=== PATIENT | male | born 2000 | race Caucasian/White ===

== ENCOUNTER 2019-06-30 12:41 | Emergency (ER) | payer BC, SELFPAY ==
[2019-06-30 12:57] VITALS: BP 130/78; PULSE 102; RESP 18; TEMP 37.2; O2SAT 98
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
== END 2019-06-30 13:22 | disposition home or self-care (01) ==
PROVIDERS: Emergency Provider Nurse Practitioner
DX: S13.4XXA Sprain of ligaments of cervical spine, initial encounter (principal); V89.2XXA Person injured in unspecified motor-vehicle accident, traffic, initial encounter; R51 Headache; F41.9 Anxiety disorder, unspecified; F90.9 Attention-deficit hyperactivity disorder, unspecified type
CPT/HCPCS: 99213; G0463

== ENCOUNTER 2020-11-01 17:38 | Emergency (ER) | payer BC, SELFPAY ==
[2020-11-01 17:45] VITALS: BP 147/89; PULSE 86; RESP 16; TEMP 36.6; O2SAT 98
--- NOTE | 2020-11-01 17:53 | ED.GENADULT ---
HPI - General Adult General Chief complaint: Neck Pain/Injury Stated complaint: pain at base of neck Source: patient Mode of arrival: ambulatory Limitations: no limitations History of Present Illness HPI narrative: Patient is a 20-year-old male who presents to the [facility] via POV for evaluation of neck pain (pointing to occipital area of head) is been present for approximately 1 week. Patient reports the pain is intermittent and throbbing in nature. He reports intermittent pains that shoot up occipital area as well. He states he noticed the symptom upon awakening. Nothing improves symptoms. Patient reports pain worsens with activity such as working out, walking, jogging, or masturbating. No relief with Motrin and hot showers. History of anxiety, ADHD, depression. Patient reports he discontinued all psychotropics a few months ago . He denies withdrawal symptoms, stating, I stopped them because I feel like I did not need them. I feel fine now . Related Data Allergies Allergy/AdvReac Type Severity Reaction Status Date / Time Penicillins Allergy Mild RASH Verified 11/01/20 17:43 Cat [place]ander Allergy Mild Sneezing Uncoded 11/01/20 17:43 [place] Allergy Mild Swelling Uncoded 11/01/20 17:43 of the Eye Review of Systems Review of Systems: Narrative: CONSTITUTIONAL: Denies fever, chills, or sweats. EYES: Denies visual changes, redness, or discharge. ENT: Denies rhinorrhea, congestion, sore throat, or otalgia. CARDIOVASCULAR: Denies chest pain, palpitations, or edema. RESPIRATORY: Denies cough or dyspnea. GASTROINTESTINAL: Denies abdominal pain, nausea, vomiting, or diarrhea. GENITOURINARY: Denies dysuria or hematuria. SKIN: Denies rash or itching. MUSCULOSKELETAL: Denies back pain, joint pain, or myalgia. NEUROLOGIC: Denies LOC dizziness, migraines, tingling, incontinence, seizures, muscle cramps, memory problems, numbness, or weakness. PSYCHIATRIC: Denies anxiety or depression. [facility] Social History Social History Gender identity (if verbalized by the patient): Male Comments I have reviewed and agree with the patient's past medical, surgical, social, and family hx as documented by the RN. There is no relevant family history pertinent to the presenting complaint. Exam Narrative: Exam Narrative: GENERAL: Well-appearing, well-nourished, and in no acute distress. HEAD: Normocephalic, atraumatic. No sinus tenderness or facial swelling appreciated. No evidence of ear bleeding or drainage from ears. No evidence of foreign bodies. No signs of basilar skull fracture: no hemotympanum, linn's sign, or raccoon's eyes. EYES: PERRLA and EOMI. No evidence of erythema, swelling, or drainage. ENT: Bilateral external ears and ear canals normal. Bilateral TMs are normal. No TM perforation. Nares clear, no septal hematoma or epistaxis. Bilateral turbinates without erythema/ swelling. Mucous membranes moist and pink. Uvula is midline without erythema and swelling. No evidence of petechial rash, cobblestoning, lesions, ulcers, erythema, swelling, exudates, peritonsillar abscess, tenting, or drooling. Breath odor and voice normal. NECK: Supple. No injury or pain appreciated. No lymphadenopathy or nuchal rigidity appreciated. CHEST: Bilateral lung zavala are clear to auscultation. No respiratory distress. No evidence of cough or pleuritic cp upon examination. No evidence of deformity, flail chest, hematomas, contusions, lacerations. HEART: Regular rate and rhythm. No murmur, gallop, or rub heard. ABDOMEN: Soft, nontender, nondistended, normal active bowel sounds in all quadrants. No guarding. No rebound tenderness. No pulsatile or palpable abdominal mass(es). No CVAT. No evidence of seat belt sign. BACK: Full ROM. No evidence of deformity, spasm, mass, spinal tenderness, or swelling. Bilateral SLR tests negative. EXTREMITIES: Normal range of motion. No e
== END 2020-11-01 18:37 | disposition home or self-care (01) ==
PROVIDERS: Emergency Provider Nurse Practitioner Family; PCP Physician Assistant
DX: S16.1XXA Strain of muscle, fascia and tendon at neck level, initial encounter (principal); X58.XXXA Exposure to other specified factors, initial encounter; G44.209 Tension-type headache, unspecified, not intractable
CPT/HCPCS: 99213; G0463

== ENCOUNTER 2022-01-06 16:13 | Emergency (ER) | payer BC, SELFPAY ==
[2022-01-06 16:23] VITALS: BP 143/87; PULSE 81; RESP 20; TEMP 36.7; O2SAT 98
--- NOTE | 2022-01-06 16:27 | ED.URI ---
HPI - URI/Sore Throat General Chief Complaint: Upper Respiratory Infection Stated Complaint: Headache,Shortness of Breath,Body Aches Time Seen by Provider: 01/06/22 16:27 Source: patient and RN notes reviewed Mode of arrival: ambulatory Limitations: no limitations History of Present Illness HPI Narrative: 21-year-old male presents to the [facility] with complaints of headache, intermittent shortness of breath, fatigue and body aches for 3 days. Denies fevers. Reports his roommate had the same symptoms for 1 day longer than he has. Had tried yejj-qkt-uzhunzs products 1 time. Requesting a work note Onset (ago): day(s) (3) Related Data Home Medications Medication Instructions Recorded Confirmed No Home Medications 01/06/22 01/06/22 Allergies Allergy/AdvReac Type Severity Reaction Status Date / Time Penicillins Allergy Mild RASH Verified 01/06/22 16:32 Cat [place]ander Allergy Mild Sneezing Uncoded 01/06/22 16:32 [place] Allergy Mild Swelling Uncoded 01/06/22 16:32 of the Eye Review of Systems Review of Systems: All systems reviewed & are unremarkable except as noted in HPI and below Constitutional: Constitutional: Reports as per HPI, Reports chills, Reports fatigue and Denies fever(s) Eyes: Eyes: Reports no additional eye complaints ENT: Reports system reviewed and no additional complaints, except as documented Cardiovascular: Cardiovascular: Reports no additional cardiovascular complaints Respiratory: Respiratory: Reports as per HPI Gastrointestinal: Gastrointestinal: Reports no additional gastrointestinal complaints Musculoskeletal: Musculoskeletal: Reports no additional musculoskeletal complaints Integumentary/Breasts: Skin/Breast: Reports system reviewed and no additional complaints, except as docu Neurologic: Reports as per HPI and Reports headache(s) Psychiatric: Psychiatric: Reports no additional psychiatric complaints Allergic/Immunologic: Allergic/Immunologic: Reports no additional allergic/immunologic complaints PMFSH Social History Social History Gender identity (if verbalized by the patient): Male Comments At the time of my signature, I reviewed and agree with the nursing past medical, surgical, social, and family history. There is no relevant family history pertinent to the patient complaint. Exam Const: General: healthy appearing, no acute distress and alert Nutritional Appearance: well nourished and obese Orientation/consciousness: patient oriented x3 Limitations: no limitations HENMT: Head: normal to inspection Ears: external ears normal, TM's normal bilaterally and EAC's normal General nose exam: Normal external nose present and Normal nares present Face and sinus: normal facial exam Mouth: Yes Normal oral and palatal mucosa present Throat: posterior oropharynx normal and uvula midline Eyes: General: appearance normal, both eyes and all related structures Conjunctivae: conjunctivae normal Pupils: Equal, round and reactive pupils present EOM: EOMs intact bilaterally Direct Ophthalmoscopy: no photophobia Neck: Neck: normal visual inspection, no lymphadenopathy and no meningeal signs Chest: Chest palpation & inspection: normal inspection of the chest Resp: Effort & Inspection: normal respiratory effort and no use of accessory muscles Auscultation: clear to auscultation bilaterally, no crackles, no rales, no rhonchi and no wheezes Cardio: Rate: regular rate Rhythm: regular rhythm Back/Spine/Pelvis: Cervical Spine: normal cervical lordosis Thoracic/Lumbar Spine: thoracic and lumbar spine normal to inspection Skin: General skin exam: normal color Rashes: no rashes Wounds: no wounds Neuro: General: patient oriented x3, moves all extremities, no meningeal signs and no focal motor deficits Cranial nerves: Yes Equal, round and reactive pupils present Speech: normal speech Gait exam (Neuro): Normal gait present Extrem:
[2022-01-06 19:43] LABS: SARS-CoV-2 RNA PCR Negative
== END 2022-01-06 16:50 | disposition home or self-care (01) ==
PROVIDERS: Emergency Provider Nurse Practitioner
DX: J06.9 Acute upper respiratory infection, unspecified (principal); Z20.822 Contact with and (suspected) exposure to COVID-19
CPT/HCPCS: 99213; C9803; G0463; U0003; U0005

== ENCOUNTER 2022-04-05 17:09 | Emergency (ER) | payer BC, SELFPAY ==
[2022-04-05 17:18] VITALS: BP 148/87; PULSE 115; RESP 20; TEMP 36.7; O2SAT 99
--- NOTE | 2022-04-05 17:46 | ED.URI ---
HPI - URI/Sore Throat General Chief Complaint: Upper Respiratory Infection Stated Complaint: Cough,Body Aches,Fatigue,Congestion Time Seen by Provider: 04/05/22 17:39 Source: patient Mode of arrival: ambulatory Limitations: no limitations History of Present Illness HPI Narrative: Patient presents today complaining of a 2-3 day history of cough, body aches, congestion, fatigue, nausea. Denies fever or shortness of breath. He has tried no [id number] medication for his symptoms prior to arrival. States his roommate is sick with similar symptoms. Related Data Home Medications Medication Instructions Recorded Confirmed No Home Medications 01/06/22 04/05/22 Allergies Allergy/AdvReac Type Severity Reaction Status Date / Time Penicillins Allergy Mild RASH Verified 04/05/22 17:18 Cat [place]ander Allergy Mild Sneezing Uncoded 04/05/22 17:18 [place] Allergy Mild Swelling Uncoded 04/05/22 17:18 of the Eye Review of Systems Review of Systems: CONSTITUTIONAL: Denies fever, chills, or sweats.+ body aches, fatigue EYES: Denies visual changes, redness, or discharge. ENT: Denies rhinorrhea, sore throat, or otalgia.+ congestion CARDIOVASCULAR: Denies chest pain, palpitations, or edema. RESPIRATORY: Denies dyspnea.+ cough GASTROINTESTINAL: Denies abdominal pain, vomiting, or diarrhea.+ nausea GENITOURINARY: Denies dysuria or hematuria. SKIN: Denies rash, itching, or wounds. MUSCULOSKELETAL: Denies back pain, joint pain, or myalgia. NEUROLOGIC: Denies headache, numbness, tingling, or weakness. PSYCH: Denies depression or anxiety. PMFSH Social History Social History Gender identity (if verbalized by the patient): Male Comments At time of signature, I have reviewed and agree with nursing past medical, surgical, social and family history unless otherwise noted. Please see nursing chart for further information. There is no relevant family history pertinent to the presenting complaint Exam Narrative: GENERAL: Mildly ill-appearing, well-nourished, and in no acute distress. HEAD: Normocephalic, atraumatic. EYES: EOMI. No redness or drainage. Conjunctivae normal. ENT: Mucous membranes pink and moist. Nares congested. No rhinorrhea. TMs normal bilaterally. Throat normal. Uvula midline. NECK: Normal AROM. Supple. No lymphadenopathy. CHEST: No respiratory distress. Clear to auscultation. Tight cough noted. HEART: Regular rhythm. Tachycardia. No murmur appreciated. Normal peripheral pulses. EXTREMITIES: Normal range of motion. SKIN: Warm, dry, no rash. Capillary refill normal. Normal skin turgor. NEURO: No focal deficits. Alert and oriented x3. Gait steady. PSYCH: Normal affect. No signs of depression or anxiety. Course Course Level of Care: Express Care Visit Vital Signs Vital signs: Vital Signs Temperature 98.1 F 04/05/22 17:18 Pulse Rate 115 H 04/05/22 17:18 Respiratory Rate 20 04/05/22 17:18 Blood Pressure 148/87 H 04/05/22 17:18 Pulse Oximetry 99 04/05/22 17:18 Oxygen Delivery Room Air 04/05/22 17:18 Temperature 98.1 F 04/05/22 17:18 Pulse Rate 115 H 04/05/22 17:18 Respiratory Rate 20 04/05/22 17:18 Blood Pressure 148/87 H 04/05/22 17:18 Pulse Oximetry 99 04/05/22 17:18 Oxygen Delivery Room Air 04/05/22 17:18 Reviewed. Pt has been instructed to follow up with his PCP regarding his elevated blood pressure today. MDM - URI/Sore Throat Differential Diagnosis Differential diagnosis: Likely upper respiratory infection, viral infection and bronchitis Critical Care Time Critical Care Time Critical Care Time: No Discharge Plan Discharge Clinical Impression: Upper respiratory infection Qualifiers: URI type: unspecified URI Qualified Code(s): J06.9 - Acute upper respiratory infection, unspecified Patient Disposition: Home, Self-Care Condition: Stable Instructions: Upper Respiratory In
== END 2022-04-05 17:51 | disposition home or self-care (01) ==
PROVIDERS: Emergency Provider Nurse Practitioner; PCP Physician Assistant
DX: J06.9 Acute upper respiratory infection, unspecified (principal)
CPT/HCPCS: 99211; G0463

== ENCOUNTER 2022-10-24 16:14 | Emergency (ER) | payer BC, SELFPAY ==
--- NOTE | 2022-10-24 16:25 | ED.SKABFB ---
HPI - Skin/Abscess/Foreign Bdy General Chief complaint: Skin/Abscess/Foreign Body Stated complaint: lt arm irritation Time Seen by Provider: 10/24/22 16:25 Source: patient Mode of arrival: ambulatory Limitations: no limitations History of Present Illness HPI narrative: Patient is a 22-year-old male who presents with redness, swelling and tenderness to the left forearm. Patient states it started as what looked like a bite 3 days ago and has since grown into this red area. Patient denies any fever, chills, nausea, vomiting, diarrhea. Denies any numbness or tingling to hand. Related Data Allergies Allergy/AdvReac Type Severity Reaction Status Date / Time Penicillins Allergy Mild RASH Verified 10/24/22 16:28 Cat [place]ander Allergy Mild Sneezing Uncoded 10/24/22 16:28 [place] Allergy Mild Swelling Uncoded 10/24/22 16:28 of the Eye Review of Systems Review of Systems: All systems reviewed & are unremarkable except as noted in HPI and below Constitutional: Constitutional: Denies body ache(s), Denies chills, Denies fatigue, Denies fever(s), Denies headache(s), Denies malaise and Denies weakness Eyes: Eyes: Denies blurry vision, Denies irritation and Denies loss of vision ENT: Denies otalgia, Denies headache(s), Denies nasal discharge, Denies sinus pain and Denies sore throat Cardiovascular: Cardiovascular: Denies chest pain, Denies irregular heart rhythm and Denies dyspnea Respiratory: Respiratory: Denies dyspnea Gastrointestinal: Gastrointestinal: Denies abdominal pain, Denies melena, Denies hematochezia, Denies diarrhea, Denies nausea and Denies vomiting Musculoskeletal: Musculoskeletal: Denies back pain, Denies myalgias and Denies arthralgias Integumentary/Breasts: Skin/Breast: Reports change in pigmentation, Denies pruritus, Denies rash, Reports skin pain and Reports skin swelling Neurologic: Denies headache(s), Denies loss of vision and Denies weakness Psychiatric: Psychiatric: Reports no additional psychiatric complaints Endocrine: Endocrine: Denies fatigue PMFSH Social History Social History Gender identity (if verbalized by the patient): Male Comments At time of signature, agree with nursing past medical, surgical, social and family history. There is no relevant family history pertinent to the presenting complaint. Exam Const: General: cooperative, healthy appearing, comfortable, no acute distress and well nourished Nutritional Appearance: well nourished Orientation/consciousness: patient oriented x3 Limitations: no limitations HENMT: Head: normal to inspection, normocephalic and atraumatic Ears: hearing grossly normal bilaterally and external ears normal Face/Nose/Sinus: Normal external nose present, normal facial exam and face symmetric Face and sinus: normal facial exam and face symmetric Mouth: Yes lip normal Eyes: General: appearance normal, both eyes and all related structures Alignment and Position: alignment normal and position normal Periorbital: periorbital findings normal Eyelids: eyelids normal Pupils: Equal, round and reactive pupils present EOM: EOMs intact bilaterally Neck: Neck: normal visual inspection, full ROM and supple Chest: Chest palpation & inspection: normal inspection of the chest Resp: Effort & Inspection: normal respiratory effort and able to speak in complete sentences Auscultation: clear to auscultation bilaterally Cardio: Rate: regular rate Rhythm: regular rhythm Heart sounds: S1 normal heart sound present and S2 normal heart sound present GI: Inspection: normal to inspection Skin: General skin exam: normal color and no rashes or lesions noted Lesions: lesion noted left forearm size (6x6), borders well-defined, color red, consistency soft; not fluctuant, surface warm and with an erythematous base and tender Full body images: 1. 6x6 erythemic area that is tender on palpation and warm to touch. No obv
[2022-10-24 16:27] VITALS: BP 133/81; PULSE 90; RESP 18; TEMP 36.6; O2SAT 98
== END 2022-10-24 16:38 | disposition home or self-care (01) ==
PROVIDERS: Emergency Provider Nurse Practitioner Family; PCP Physician Assistant
DX: L03.116 Cellulitis of left lower limb (principal)
CPT/HCPCS: 99213; G0463

== ENCOUNTER 2024-01-28 12:05 | Emergency (ER) | payer BC, SELFPAY ==
[2024-01-28 12:17] VITALS: BP 144/88; PULSE 68; RESP 15; TEMP 36.3; O2SAT 100
--- NOTE | 2024-01-28 12:24 | ED.ABDPAIN ---
HPI - Abdominal Pain General Chief Complaint: Abdominal Pain Stated Complaint: sharp pain in abdomen and nausea Time Seen by Provider: 01/28/24 12:25 Source: patient, RN notes reviewed and old records reviewed Mode of arrival: ambulatory Limitations: no limitations History of Present Illness HPI narrative: 23-year-old male presents to the [facility] with complaints of sharp pain to the right lower quadrant. Symptoms started on Wednesday. Patient reports pain got a little better Wednesday but started vomiting. Woke up this morning with significant right lower quadrant pain, rebound tenderness as well as nausea without vomiting today. Denies fevers. Denies any abdominal surgeries. Onset (ago): day(s) (2) Related Data Home Medications Medication Instructions Recorded Confirmed atomoxetine 40 mg capsule 40 mg PO DIRECTED 01/28/24 01/28/24 Allergies Allergy/AdvReac Type Severity Reaction Status Date / Time Penicillins Allergy Mild RASH Verified 01/28/24 12:30 [place] Allergy Mild Sneezing Uncoded 01/28/24 12:30 [place] Allergy Mild Swelling Uncoded 01/28/24 12:30 of the Eye Review of Systems Review of Systems: All systems reviewed & are unremarkable except as noted in HPI and below Constitutional: Constitutional: Reports no additional constitutional complaints Eyes: Eyes: Reports no additional eye complaints ENT: Reports system reviewed and no additional complaints, except as documented Cardiovascular: Cardiovascular: Reports no additional cardiovascular complaints, Denies chest pain and Denies dyspnea Respiratory: Respiratory: Reports no additional respiratory complaints, Denies chest congestion, Denies cough and Denies dyspnea Gastrointestinal: Gastrointestinal: Reports as per HPI, Reports abdominal pain, Reports nausea and Reports vomiting Musculoskeletal: Musculoskeletal: Reports no additional musculoskeletal complaints Integumentary/Breasts: Skin/Breast: Reports system reviewed and no additional complaints, except as docu Neurologic: Reports system reviewed and no additional complaints, except as documented Psychiatric: Psychiatric: Reports no additional psychiatric complaints Allergic/Immunologic: Allergic/Immunologic: Reports no additional allergic/immunologic complaints [facility] Surgical History Surgical History (Updated 01/28/24 @ 12:38 by Maryanne Patterson APRN) History of hernia surgery As a baby Social History Social History Gender identity (if verbalized by the patient): Male Comments At the time of my signature, I reviewed and agree with the nursing past medical, surgical, social, and family history. There is no relevant family history pertinent to the patient complaint. Exam Const: General: cooperative, healthy appearing, comfortable, no acute distress, well developed, alert and well nourished Nutritional Appearance: well nourished and obese Orientation/consciousness: patient oriented x3 Limitations: no limitations HENMT: Head: normal to inspection Ears: hearing grossly normal bilaterally and external ears normal Face/Nose/Sinus: Normal external nose present, Normal nares present, Normal nasal mucous membranes and turbinates present, normal facial exam and face symmetric Face and sinus: normal facial exam and face symmetric Eyes: General: appearance normal, both eyes and all related structures Alignment and Position: alignment normal Periorbital: periorbital findings normal Neck: Neck: normal visual inspection, full ROM, no lymphadenopathy and no meningeal signs Chest: Chest palpation & inspection: normal inspection of the chest Resp: Effort & Inspection: normal respiratory effort and able to speak in complete sentences Cardio: Rate: regular rate GI: GI Palp: Yes abdominal tenderness, Yes Soft to palpation and Yes Tenderness to palpation present (GI) (RLQ) Auscultation: normal bowel sounds Skin: General skin
== END 2024-01-28 12:36 | disposition short-term general hospital (02) ==
PROVIDERS: Emergency Provider Nurse Practitioner
DX: R10.31 Right lower quadrant pain (principal)
CPT/HCPCS: 99212; G0463

== ENCOUNTER 2024-08-21 15:52 | Emergency (ER) | payer BC, SELFPAY ==
[2024-08-21 16:02] VITALS: BP 136/88; PULSE 121; RESP 18; TEMP 36.9; O2SAT 100
--- NOTE | 2024-08-21 16:06 | ED_ITS ---
HPI - URI/Sore Throat General Chief Complaint: Upper Respiratory Infection Stated Complaint: congestion / headache Time Seen by Provider: 08/21/24 16:06 Source: patient Mode of arrival: ambulatory Limitations: no limitations History of Present Illness HPI Narrative: Ryne is a 24-year-old male patient presenting to the clinic today with complaints of nonproductive cough, headache, nasal congestion, and sore throat X1 day. He denies any known fevers, chills, body aches. Denies any chest pain but does have some slight shortness of breath at times Related Data Home Medications ?Medication ?Instructions ?Recorded ?Confirmed ?Last Taken ?Type atomoxetine 40 mg capsule 40 mg PO DIRECTED 01/28/24 01/28/24 Unknown History Allergies Allergy/AdvReac Type Severity Reaction Status Date / Time Penicillins Allergy Mild RASH Verified 01/28/24 12:30 Cat [place]ander Allergy Mild Sneezing Uncoded 01/28/24 12:30 [place] Allergy Mild Swelling Uncoded 01/28/24 12:30 of the Eye Review of Systems Review of Systems: Pertinent positives per HPI. Patient denies any fever, chills, rash, visual changes, dizziness, chest pain, palpitations, nausea, vomiting, diarrhea, constipation, abdominal pain, or any urinary issues. [facility] Surgical History Surgical History History of hernia surgery As a baby Social History Social History Gender identity (if verbalized by the patient): Male Comments At the time of my signature, I reviewed and agree with the nursing past medical, surgical, social, and family history. There is no relevant family history pertinent to the patient complaint. Exam Narrative: General: Well-developed, obese, in no apparent distress Head: Normocephalic, atraumatic Eyes: Pupils equally round and reactive to light bilaterally, EOM intact, sclera and conjunctive clear, no discharge, lids normal Ears: TMs intact and congestion, ear canals clear, no drainage, grossly hearing normal. Nose: Nares patent, clear nasal discharge, no inflammation, no sinus tenderness. Mouth: Oral pharynx red without lesions or masses, good dentition, MMM. postnasal drip Neck: Supple, trachea midline, no enlargement of anterior or posterior cervical nodes, no thyroid masses or goiter palpable. Cardio: Regular rate and rhythm, s1 and s2 normal, no murmur appreciated. Resp: Lung sounds tight/diminished, no rhonchi, rales, wheezing or rubs Course Course Emergency Course: Portions of this record may have been created with voice recognition software. Level of Care: Express Care Visit Vital Signs Vital signs: Vital Signs Temperature 36.9 C 08/21/24 16:02 Pulse Rate 121 H 08/21/24 16:02 Respiratory Rate 18 08/21/24 16:02 Blood Pressure 136/88 08/21/24 16:02 Pulse Oximetry 100 08/21/24 16:02 Oxygen Delivery Room Air 08/21/24 16:02 Temperature 36.9 C 08/21/24 16:02 Pulse Rate 121 H 08/21/24 16:02 Respiratory Rate 18 08/21/24 16:02 Blood Pressure 136/88 08/21/24 16:02 Pulse Oximetry 100 08/21/24 16:02 Oxygen Delivery Room Air 08/21/24 16:02 Vital signs reviewed MDM - URI/Sore Throat MDM Narrative Medical decision making narrative: At the time of visit patient is resting comfortably on the exam table. Patient appears to be nontoxic. Labs: COVID and influenza testing was performed. All testing was negative. Medications: DuoNeb hand-held neb treatment was given in the clinic today Plan: I suspect patient has URI with cough and congestion. Prescription for albuterol inhaler was sent to the pharmacy. COVID and influenza testing were negative. Supportive measures were discussed with the patient and they voiced understanding discharge instructions and agrees to treatment plan. Return precautions reviewed Differential Diagnosis Differential diagnosis: Likely upper respiratory infection, otitis media, sinusitis, viral infection, bronchitis, influenza, pharyngitis and other ( COVID) Discharge Plan Discharge Clinical Impression: Upper respiratory infection Qualifiers: URI type: unspecified URI Qualified Code(s): J06.9 - Acute upper respiratory infection, unspecified Patient Disposition: Home Condition: Stable Instructions: Antibiotic Form, Cold Symptoms (ED) Additional Instructions: Take prescription medications only as prescribed- albuterol inhaler DuoNeb handheld treatment was given in the clinic today May take DayQuil/ NyQuil for cold /flu symptoms Increase fluids and stay well hydrated Tylenol/motrin for pain/fever Flonase and OTC antihistamines as directed Vicks vapor rub to open sinuses Sinus rinses for congestion Cepacol spray, cough drops, throat lozenges, warm tea with honey/lemon, gargle salt water to soothe throat BRAT diet for diarrhea Clear liquids x 24 hours then advance as tolerated for nausea/vomiting Go to the ED if you develop a worsening in your condition- high fever not controlled by Tylenol or Motrin, dehydration, weakness, lethargy, shortness of breath, or chest pain. Follow up with your PCP in 3-5 days if symptoms persist. Patient Language: Citizen Of [place] Prescriptions: No Action atomoxetine 40 mg capsule 40 mg PO DIRECTED Follow-up/Referrals: Parent,REID Tenorio [Primary Care Provider] - Time of Disposition: 16:32 Quality NIHSS Nursing Documentation ED NIHSS nursing documentation: reviewed/agree
[2024-08-21] MEDS: IPRATROPIUM 0.5 MG/ALBUTEROL SULFATE 2.5 MG AMPUL.NEB 3 ML INHALATION (16:24)
[2024-08-21 16:34] LABS: EDCOVIDSCREEN Negative (Negative)
[2024-08-21 16:34] LABS: EDINFLUASCREEN Negative (Negative); EDINFLUBSCREEN Negative (Negative)
--- OUTSIDE RECORDS SUMMARY | 2024-08-21 17:40 | XMS_ITS | Continuity of Care Document ---
[facility] Organization [facility] Address [address] [place] [address] Phone Care Team Providers Care Claims Account Specialist Name Role Phone Conversion MD, Doctor Unavailable Unavailabl e Allergies, Adverse Reactions, Alerts Substance Reaction Status Criticality No Known Drug Allergies Other Active No I nformation Medications Medication Instructions Dosage Effective Dates (start - stop) Status Comments ZYRTEC 5 MG CHEWABLE TABLET 1 QD-daily - Active change scri pt given to patient in december from 5 mg tablet to the 5 mg chewable tablet ZYRTEC 5 MG TABLET 1 QD-daily - No Longer Active ZYRTEC 5 MG TABLET 1 QD-daily - No Longer Active NASONEX 50MCG APPLICS 1 QAM - No Longer Active ZYRTEC 5 MG TABLET 1 QD No Longer Active ZYRTEC 5MG TABS 1 QD - No Longer Active Advance Directives Directive Yes / No Effective Date File Name No Information Encounters Encounter Description Practice Location Reason(s) For Visit Diagnoses Date Provider Providers Copied on Encounter [facility], [address], [place], [place], [id number], [place] tel:[phone] Conversion Department No Information 1 Conversion [place], [address], [place]. [facility], [address], [place], [place], [address], [place] tel:[phone] [facility] RHINITIS DUE TO POLLEN 9 Conner Garcia. [address], [id number], [place]. tel:[phone] [facility], [address], [place], [place], [address], [place] tel:[phone] [facility] No Information 6 Conner Garcia. [address] [address], [place], [place], [id number], [place]. tel:[phone] Family History Family Member Type Diagnosis Age At Onset No Information Payers Payer name Insurance type Covered constitution party ID Authoriza tion(s) No Information Social History Type Description Quantity Date Captured Comments Sex Male Smoking Status No Information Chief Complaint And Reason For Visit No Information Reason For Referral Reason For Referral No Information History Of Present Illness Encounter Date Complaint History Of Prese nt Illness No Information Functional Status Date Functional Assessmen t No Information Instructions Date Instruction Additional Infor mation No Information Assessments Type Assessment Date No Information Patient Care Teams Name Effective Dates (start - stop) Status Members No Information
--- OUTSIDE RECORDS SUMMARY | 2024-08-21 17:40 | XMS_ITS | Clinical Summary ---
Author Organization [facility] [employer] Address [address] [place] [address] Care Team Providers Care Product Support Rep Name Role Phone Kenyatta Mederos MD Primary Care Provider [phone] [facility] [employer],non-owned Affiliates and Associated Physician Practices is amultiple site organization consisting of ambulatory clinics and hospital sitesin [place], [place], [place] and [place]. This disclosure is being madepursuant to the Care Everywhere program and may not contain all information available regarding this patient. Last updated 18.[facility] [employer] Allergies Active Allergy Reactions Criticality Noted Date Comments Penicillins Rash Low 08/06/2011 Medications * Be aware that medications may not be up to date on this document. Alwaysverify current medications with the patient. sertraline (ZOLOFT) 100 MG tablet Take 150 mg by mouth once daily. Takes one 100 mg tab and 1/2 of a 50 mg tab Active amphetamine-dext roamphetamine XR 24hr (ADDERALL XR) 5 MG capsule Take 5 mg by mouth every morning. Active levocetirizine (XYZAL) 5 MG tablet Take 5 mg by mouth once daily. 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 Gender Identity Not on file Sexual Orientation Not on file Plan of Treatment Health Maintenance Due Date Last Done Comments HIV SCREENING 2013 HPV VACCINE (1 - Male 3-dose series) 2013 HEPATITIS C SCREENING 08/10/2016 DTAP/TDAP/TD VACCINES (1 - Tdap) 2017 HEPATITIS B VACCINE (1 of 3 - 19+ 3-dose series) 2017 COVID-19 VACCINE (1 - 2023-2 5 season) 2024 DEPRESSION SCREENING 05/03/2024 INFLUENZA VACCINE (Season Ended) 2025 ZOSTER VACCINE (1 of 2) 2048 HIB VACCINE Aged Out No longer eligi ble based on patient's age to complete this topic MENINGOCOCCAL (Group B) VACC INE SHARED DECISION-MAKING Aged Out No longer eligibl e based on patient's age to complete this topic MENINGOCOCCAL GROUPS A/C/Y/W VACCINE Aged Out No longer eligible b ased on patient's age to complete this topic PNEUMOCOCCAL VACCINE Aged Out No long er eligible based on patient's age to complete this topic Care Teams Product Support Rep Relationship Specialty Start Date End Date Kenyatta Mederos MD [address] [place] [address] PCP - General 08/06/11
--- OUTSIDE RECORDS SUMMARY | 2024-08-21 17:40 | XMS_ITS | Clinical Summary ---
Author Organization [facility] Address [address] [place] [address] Care Team Providers Care Airline Reservationist Name Role Phone Parent, Oliva MATHEWS Primary Care Provider [phone] Allergies Active Allergy Reactions Criticality Noted Date Comments Penicillins Swelling 12/18/2019 Medications atomoxetine (STRATTERA) 40 MG capsule Take 1 capsule (40 mg total) by mouth daily. 01/19/2024 Active Family History Medical History Relation Comments Cancer Father No Known Problems Mother Relation Status Comments Father Mother Social History Tobacco Use Types Packs/Day Years Used Date Smoking Tobacco: Never Smokeless Tobacco: Never Alcohol Use Standard Drinks/Week Comments Yes 5 (1 standard drink = 0.6 oz pur e alcohol) Sex and Gender Information Value Date Recorded Sex Assigned at Not on file Legal Sex Male 7:41 PM CDT Gender Identity Not on file Sexual Orientation Not on file Last Filed Vital Signs Vital Sign Reading Time Taken Comments Blood Pressure 150/92 01/28/2024 1:45 PM CDT Pulse 90 01/28/2024 1:45 PM CDT Temperature 36.2 C (97.2 F) 01/28/2024 1:45 PM CDT Respiratory Rate 18 01/28/2024 1:45 PM CDT Oxygen Saturation 96% 01/28/2024 1:45 PM CDT Inhaled Oxygen Concentration - - Weight 122.5 kg (270 lb) 01/28/2024 1:45 PM CDT Height 172.7 cm (5' 8 ) 01/28/2024 1:45 PM CDT Body Mass Index 41.05 01/28/2024 1:45 PM CDT Plan of Treatment Health Maintenance Due Date Last Done Comments Annual Physical 2001 Hepatitis C 2016 Meningococcal B Vaccine (2 o f 2 - Trumenba SCDM 2-dose series) 06/02/2017 11/30/2016 DTaP, Tdap and Td Vaccines ( 1 - Tdap) 2017 Hepatitis B Vaccines (1 of 3 - 19+ 3-dose series) 2017 COVID-19 Vaccine (3 - 2023-2 5 season) 2024 08/18/2020, 07/28/2020 Pneumococcal Vaccine: Pediatrics (0 to 5 Years) and At-Risk Patients (6 to 49 Years) Completed 02/09/2000, 10/20/1999 HPV Vaccines Completed 12/31/2015, 12/18/2013, 12/02/2012 Meningococcal Vaccine Completed 12/31/2015 , 11/28/2009 RSV Immunizations Under 20 Months Aged Out No longer eligible b ased on patient's age to complete this topic Insurance Care Teams Airline Reservationist Relationship Specialty Start Date End Date ParentOliva PA [address] [place] [address] PCP - General FAMILY PRACTICE 12/18/19
--- OUTSIDE RECORDS SUMMARY | 2024-08-21 17:42 | XMS_ITS | Continuity of Care Document ---
Author Organization [facility] Address [address] [place] [address] Phone Care Team Providers Care Skidder Driver Name Role Phone Conversion MD, Doctor Unavailable [...] Diagnoses Date Provider Providers Copied on Encounter [facility], [address], [place], [place], [address], [place] tel:[phone] Conversion Department No Information 1 Conversion [place], [address], [place]. [facility], [address], [place], [place], [address], [place] tel:[phone] [facility] RHINITIS DUE TO POLLEN 9 Conner Garcia. [address], [id number], [place]. tel:[phone] [facility], [address], [place], [place], [address], [place] tel:[phone] [facility] No Information 6 Conner Garcia. [address] [address], [place], [place], [address], [place]. tel:[phone] Family History Family Member Type Diagnosis Age At Onset No Information Payers Payer name Insurance type Covered democrat ID Authoriza tion(s) No Information Social History [...]
== END 2024-08-21 16:38 | disposition home or self-care (01) ==
PROVIDERS: Emergency Provider Nurse Practitioner Family; PCP Physician Assistant
DX: J06.9 Acute upper respiratory infection, unspecified (principal); Z20.822 Contact with and (suspected) exposure to COVID-19
CPT/HCPCS: 87426; 87804; 94640; 99212; G0463